=== PATIENT | female | born 2000 | race African-American/Black ===

== ENCOUNTER 2024-08-31 21:36 | Emergency (ER) | payer MEDICAID ==
[~2024-08-31] VITALS: Ht 162.6 cm; Wt 46.0 kg
[2024-08-31 21:38] VITALS: O2SAT 98
[2024-08-31] MEDS ORDERED: DEXAMETHASONE 0.5MG/5ML ORAL SYR PO ONE (22:30)
[2024-08-31] MEDS ORDERED: IBUP-2028 MT (23:09)
[2024-08-31] MEDS: KETOROLAC 30MG/ML VIAL IM ONE (23:32)
[2024-08-31] MEDS: HYDROCODONE/ACETAMINOPHEN 5/325MG TABLET PO ONE (23:33)
[2024-08-31] MEDS: DEXAMETHASONE 4MG TABLET PO NR (23:33)
[2024-09-01 00:30] VITALS: BP 108/61; PULSE 74; RESP 16; TEMP 37.05852; O2SAT 100
== END 2024-09-01 00:41 | disposition home or self-care (01) ==
LOC: ER 21:36
DX: R51.9 Headache, unspecified (principal); W54.0XXA Bitten by dog, initial encounter; Y93.89 Activity, other specified; Y92.89 Other specified places as the place of occurrence of the external cause; Y99.8 Other external cause status
CPT/HCPCS: 99283; 96372; J8540; J1885